=== PATIENT | female | born 1965 | race Caucasian/White ===

== ENCOUNTER 2021-08-06 23:52 | Inpatient (IN) | payer OTHER ==
[~2021-08-06] VITALS: Ht 165.1 cm; Wt 80.0 kg
--- OUTSIDE RECORDS SUMMARY | 2021-08-07 | XMS ---
PreManage Notification: RICH NATHAN Security Vibration Analyst Events No recent Security Events currently on file CRITERIA MET - [facility] - 2 Visits in 30 Days CARE PROVIDERS There are no care providers on record at this time. Cindy has no Care Guidelines for this patient. Allyson VISIT COUNT (12 MO.) [address] [place] [address] [address] [facility] TOTAL 2 NOTE: Visits indicate total known visits. ED/C VISIT TRACKING (12 MO.) 08/06/2021 23:53 [facility] [place] TYPE: Emergency COMPLAINT: - UPPER ABD PAIN 07/14/2021 11:30 [facility] TYPE: Emergency COMPLAINT: - Shoulder Pain DIAGNOSES: - Shoulder Pain - Hip Pain - Displaced fracture of lateral end of right clavicle, initial encounter for closed fracture INPATIENT VISIT TRACKING (12 MO.) No inpatient visits to display in this time frame [email or web address]
[2021-08-07] MEDS ORDERED: TYLENOL325 MG PO (00:18)
[2021-08-07] MEDS ORDERED: VITAMIN C1000 MG PO (04:40)
[2021-08-07] MEDS ORDERED: VITAMIN D3250 MC1 PO (04:41)
[2021-08-07] MEDS ORDERED: ZINC30 MG PO (04:42)
[2021-08-07] MEDS ORDERED: EVENING PRIMRO500 M1 PO (04:42)
--- NOTE | 2021-08-07 04:46 | NUR ---
PT ADMITTED TO ROOM 113 FROM ED. A/O, STOOD FROM STRETCHER AND TRANSFERED TO BED. NG TUBE IN PLACE. HAS HAD NAUSEA, VOMITING ON WAY TO MEDICAL FLOOR. ROOM AID, SATS IN 90'S. TELE WITH CPOX IN PLACE. UPDATED MED LIST, WELL FOLLOWING OTC: IODINE/TYROSINE DAILY; WOMEN PHASE VITANCIA; PRODHA 1,000 MG. PRIMARY RN IN ROOM COMPLETING ADMISSION
--- NOTE | 2021-08-07 05:02 | NUR ---
ADMISSION ASSESSMENT COMPLETE. PT DENIES PAIN. REPORTS NAUSEA IMPROVING AFTER PRN N/V ADMINISTRATION. IVF INFUSING ORDERED. NGT TO LIWS WITH THICK BROWN DRAINAGE. ABD SOFT AND NON DISTENDED. PT NPO. ORAL SWABS AND CHAPSTICK PROVIDED. TELE #[address] SR[address] HR 80'S. PT ORIENTED TO ROOM AND NURSE CALL LIGHT. PT VERBALIZES UNDERSTANDING. DENIES QUESTIONS OR CONCERNS. CALL LIGHT IN REACH.
--- NOTE | 2021-08-07 06:56 | NUR ---
NOTIFIED DR ALEXANDRA OF PT VOMITING. SAID TO ADVANCE NG TUBE. PRIMARY RN, AND THIS RN IN ROOM, ADVANCEMENT TOLERATED, WITH IMPROVEMENT OF OUTPUT.
--- NOTE | 2021-08-07 07:25 | NUR ---
REPORT RECEIVED FROM MACARIO FARIA. PT RESTING IN SEMIRECUMBANT POSITION. PT REPORTS "A SORE THROAT FROM THIS TUBE" BUT OTHERWISE DENIES PAIN AT THIS TIME. PT REPORTS NAUSEA HAS RESOLVED. NO ADDITIONAL REQUESTS OR COMPLAINTS AT [facility]. NG TUBE REMAINS TO LOW INTERMITTANT SUCTION WITH BROWN/GREEN FLUID NOTED IN CANISTER. TELEMETRY MONITORING SHOWSNORMAL SINUS RHYTHEM WITH HEART RATE OF 86 AND OXYGEN SATURATIONS OF 92%. CALL LIGHT WITHIN REACH. BED RAILS UP.
--- NOTE | 2021-08-07 07:37 | NUR ---
THIS RN TO ROOM WITH DR. ALEXANDRA FOR ROUNDS. NEW ORDERS ENTERED PER DR. ALEXANDRA FOR XRAY FOR NG TUBE PLACEMENT AND LOZANGES FOR PTS SORE THROAT. DR. ALEXANDRA ALSO STATES OK TO DC TELEMETRY AND PULSE OX MONITORING. NSR NOTED ON TELEMETRY WITH OXYGEN SATUARTION OF 98% ON ROOM AIR. PULSE OX AND TELEMETRY DC'D PER MD ORDER. PT REPORTS ABDOMINAL PAIN HAS RESOLVED BUT SORE THROAT REMAINS WITH 3/10 BURNING PAIN, AWAITING MEDICATION FROM PHARMACY. X-RAY TO BEDSIDE FOR IMAGING. X-RAY VIEWED BY DR. ALEXANDRA AT BEDSIDE WHO STATES NG TUBE IS IN THE CORRECT LOCATION. NG TUBE REMAINS TO LOW INTERMITTANT SUCTION WITH GREEN DRAINAGE NOTED. ASSESSMENT DONE, IV ASSESSED, WNL, BRISK BLOOD RETURN NOTED, IV FLUIDS CONTINUE. PT REPORTS SHE HAS HAD FALLS AT HOME RECENTLY "BECAUSE OF MY KITCHEN FLOOR." BRUISES NOTED TO LLE, CALF AREA. ABDOMEN SOFT TO TOUCH, PT DENEIS PAIN WITH PALPATION, MILD TENDERNESS NOTED AT TIMES. BOWEL TONES HYPOACTIVE. PT TALKING ON PHONE. CALL LIGHT WITHIN REACH. BED RAILS UP. NO ADDITIONAL REQUESTS OR COMPLAINTS.
--- NOTE | 2021-08-07 08:06 | NUR ---
THIS RN TO ROOM TO ADMINISTER MORNING MEDICATIONS. PT CONTINUES TALKING ON PHONE. PT REPORTS NAUSEA HAS RETURNED, SEE MAR FOR MEDICATION GIVEN. PT DENIES ADDTIIONAL REQUESTS OR COMPLAINTS. CALL LIGHT WITHIN REACH. BED RAILS UP.
--- NOTE | 2021-08-07 10:22 | NUR ---
THIS RN TO ROOM TO CHECK ON PT. FARM CONSULTANT REPORTS PT HAS EPISODE OF NAUSEA WITH 100ML EMESIS. RAVI STATES SHE GOT PT UP OUT OF BED TO VOID AFTER WHICH THE NG TUBE SUCTIONED OUT A LARGE AMOUNT. 350ML RECORDED BY MACARIO HOWELL. ADDITIONAL 100ML GREEN FLUID NOTED IN CANISTER AT THIS TIME. PT RESTING WITH EYES CLOSED. RESPIRATIONS EVEN AND UNLABORED. LOW INTERMITTANT SUCTION CONTINUES TO NG TUBE. PT ALLOWED TO REST. CALL LIGHT WITHIN REACH. BED RAILS UP.
--- NOTE | 2021-08-07 10:25 | NUR ---
PATIENT UP TO COMMODE, EARLIER THIS MORNING, TO VOID, TOLERATED ACTIVITY WELL, NGT DRAINED WELL WITH ACTIVITY AND PATIENT REPORTED DECREASE IN NAUSEA.
--- NOTE | 2021-08-07 10:42 | NUR ---
MED REC COMPLETED BY PATIENT INTERVIEW
--- NOTE | 2021-08-07 11:03 | NUR ---
THIS RN TO ROOM TO CHECK ON PT. PT REPORTS NAUSEA IS "LINGERING, STARTING TO COME BACK." PT ENCOURAGED TO REPOSITION. STAND BY ASSIST UP TO CHAIR. ADDITIONAL FLUID NOTED TO STREAM THROUGH NG TUBE. TOTAL OF 450ML GREEN FLUID NOTED IN CANISTER AT THIS TIME. PT REPORTS SHE FEELS "BETTER" GETTING UP TO CHAIR. PT TALKING ON PHONE. NO ADDITIONAL REQUESTS OR COMPLAINTS AT THIS TIME. CALL LIGHT WITHIN REACH. BED RAILS UP.
--- NOTE | 2021-08-07 12:31 | NUR ---
THIS RN TO ROOM TO CHECK ON PT. PT UP TO CHAIR. PT REPORTS SHE WOULD LIKE TO AMBULATE. 575ML OF GREEN FLUID NOTED IN NG TUBE CANISER. NG TUBE CLAMBED FOR AMBULATION. PT UP TO AMBULATE X 4 LAPS IN [place]. STEADY ON FEET, NO ASSISTANCE REQUIRED. PT BACK TO ROOM. PT REPORTS 6/10 THROAT PAIN, CEPACOL LOSANGE PROVIDED. PT WORKING ON PHONE. ICE WATER PROVIDED. NO ADDITIONAL REQUESTS OR COMPLAINTS. CALL LUIZ GALVAN.
[2021-08-07] MEDS ORDERED: MONTELUKAST SOD10 MG PO (12:53)
--- NOTE | 2021-08-07 12:53 | NUR ---
MED REC COMPLETED BY PHARMACY VIA PATIENT INTERVIEW.
--- NOTE | 2021-08-07 13:00 | NUR ---
Spoke with pt. She is not feeling well and has NG in place and this is causing a sore throat. States she lives with her spouse in [place] and denies needs. She does not have financial concerns and supports the the [employer] in [place]. Will return home with spouse when cleared medically.
--- NOTE | 2021-08-07 13:07 | NUR ---
PATIENT NG TUBE FLUSHED WITH 40CC TAP WATER, FLUSH IMMEDIATELY RETURNED TO SUCTION.
--- NOTE | 2021-08-07 13:15 | EKG ---
[facility] [address] [facility] [place] [address] Signed Normal sinus rhythm Low voltage QRS Borderline ECG No previous ECGs available Confirmed by CHRIS FALL MD ([id number]) on 08/07/2021 1:15:05 PM Electronically Signed By: CHRIS FALL MD 08/07/21 1315 PATIENT NAME: RICH NATHAN MARIBEL Electrocardiogram DATE OF : 61 PHYSICIAN: CHRIS FALL MD REPORT #: [id number] REPORT IS CONFIDENTIAL AND NOT TO BE RELEASED WITHOUT AUTHORIZATION
--- NOTE | 2021-08-07 13:39 | NUR ---
AFTERNOON ASSESSMENT AND MEDICATION DUE. THIS RN TO ROOM. PT REMAINS UP TO CHAIR. PT REPORTS NAUSEA AND 5/10 UPPER CENTRAL ABDOMINAL PAIN WELL 6/10 PAIN IN THROAT. PT BEGINS VOMITING, 100ML GREEN EMESIS NOTED. MEDICATIONS GIVEN (SEE MAR). NG TUBE REMAINS TO LOW INTERMITTANT SUCTION, GREEN FLUID NOTED IN TUBING WELL A TOTAL OF 600ML GREEN FLUID IN CANISTER. PT UP TO RESTROOM. PT VOIDS 300ML CLEAR YELLOW URINE WITHOUT ISSUE, PT PERFORMES SLEF DUTSY CARE. STAND BY ASSIST BACK TO BED. PT DESCRIBES PAIN "PRESSURE AND ACHY AND CONTINIOUS JUST LIKE SOMETHING NEEDS TO HAPPEN." VITAL SIGNS REMAINS STABLE. ASSESSMENT DONE, LUNG SOUNDS CLEAR, HEART TONES REGULAR. ABDOMEN REMAINS SOFT TO TOUCH WITH MILD DISTENTION. VERY RARE HYPOACTIVE BOWEL TONES HEARD. PT NO TOLERATING CLEAR LIQUIDS AT THIS TIME. MOUTH WAS PROVIDED, FACE CLEANED WITH CLOTH. PT RESTING IN BED WITH EYES CLOSED. RESPRAITIONS EVEN AND UNLABORED. VASILIY, CASE MANAGEMENT, TO BEDSIDE AND VISITING WITH PT. PT DENIES ADDITIONAL REQUESTS OR COMPLAINTS. CALL LIGHT WITHIN REACH.
--- NOTE | 2021-08-07 14:22 | NUR ---
AFTERNOON ASSESSMENT DUE. THIS RN TO ROOM. PT RESTING ON LEFT SIDE, REPORTS SHE IS VERY TIRED AFTER BEING UP ALL NIGHT. PT DENIES PAIN, STATES HEADACHE HAS RESOLVED. PT REPORTS "MILD" NAUSEA," SEE MAR FOR MEDICATION GIVEN. PT REPORTS "MY STOMACH JUST FEELS OFF." REPORTING THAT SHE JUST ISN'T ENJOYING HER FOOD. IV ASSESSED, WNL. NO S/S/ OF PHELBITIS NOTED, FLUSHED AND SALINE LOCKED, ALCOHOL CAP APPLIED. LUNG SOUNDS CLEAR. HEART TONES REGULAR, MURMUR REMAINS. PT REPORTS HAND SWELLING IS "BETTER" IN LEFT HAND REPORTING NOW "IT'S JUST THE RIGHT ONE." CLEAR ORANGE/YELLOW URINE NOTED. PT DENIES DYSURIA. NO ADDITIONAL REQUESTS OR COMPLAINTS. NAP TIME SIGN POSTED ON DOOR. CALL LIGHT WITHIN REACH. BED RAILS UP.
--- NOTE | 2021-08-07 15:15 | NUR ---
THIS RN TO ROOM TO CHECK ON PT. PT SITTING UP IN BED, TEXTING ON PHONE. PT REPORTS ABDOMINAL PAIN AND NAUSEA HAVE RESOLVED. PT REPORTS SORE THROAT CONTINUES AT 2/10. NG TUBE REMAINS TO LOW INTERMITTANT SUCTION WITH GREEN FLUID. PT DENIES ADDITIONAL REQUESTS OR COMPLAINTS AT THIS TIME. CALL LIGHT WITHIN REACH. BED RAILS UP.
--- NOTE | 2021-08-07 16:47 | NUR ---
THIS RN TO ROOM TO CHECK ON PT. PT SITTING UP IN BED TALKING ON PHONE. PT SHAKES HER HEAD NO WHEN ASKED IF SHE IS IN NEED OF ANYTHING. PT FINSHING PHONE CONVERSATION. CALL LIGHT WITHIN REACH. BED RAILS UP.
--- NOTE | 2021-08-07 17:07 | NUR ---
PT HERE FOR SMALL BOWEL OBSTRUCTION. PT UP WITH STAND BY ASSIST IN ROOM, TO CHAIR, AND TO AMBULATE IN [place]. PT ADVANCED TO CLEAR LIQUID DIET FOR COMFORT, TOLERATING POORLY WITH EMESIS X2 THIS SHIFT. PRN NAUSEA MEDICATIONS GIVEN. NG TUBE IN PLACE TO LOW INTERMITTANT SUCTION. >600ML GREEN FLUID NOTED OUT THIS SHIFT. PRN PAIN MEDICATION GIVEN FOR ABDOMINAL PAIN AND SORE THROAT. CEPACOLE LOZANGES ORDERED/GIVEN. BOWEL TONES RARE, ABDOMEN SOFT TO TOUCH. IV FLUIDS CONTINUE. PT VOIDING QUANTITY SUFFICIENT. PT USES CALL LIGHT AND MAKES NEEDS KNOWN.
--- NOTE | 2021-08-07 17:42 | NUR ---
THIS RN TO ROOM TO CHECK ON PT. VITAL SIGNS STABLE. PT UP TO SHOWER, IV COVERED. PT INDEPENDANT IN SHOWER. PT DENIES PAIN AND NAUSEA, CALL LIGHT WITHIN REACH. PT DENIES ADDITIONAL REQUESTS OR COMPOLAINTS. DEMONSTRATES USE OF CALL LIGHT.
--- NOTE | 2021-08-07 17:54 | NUR ---
THIS RN TO ROOM TO CHECK ON PT. PT UP TO AMBULATE X6 LAPS IN [place]. PT REPORTS SHE HAS "NO PAIN AT ALL." REPORTING THAT BOTH SORE THROAT AND ABDOMINAL PAIN HAVE RESOLVED. PT ASKES "SHOULD I BE IN PAIN RIGHT NOW?" EDUCATION DONE WITH PT REGARDING PAIN MEIDCATION AND TORADOL THAT WAS GIVEN. PT APPEARS MORE ENERGTETIC, CARRING ON CONVERSATION. PT DENIES NAUSEA. 25ML ADDITIONAL GREEN FLUID NOTED IN NG TUBE. NG TUBE REATTATCHED TO LOW INTERMITTANT SUCTION AFTER PTS AMBULATION. PT REPORTS SHE HAS "FARTED" X3 THIS AFTERNOON. PT DENIES ADDITIONAL REQUESTS OR COMPLAINTS. CALL LIGHT WITHIN REACH. BED RAILSU P.
--- NOTE | 2021-08-07 18:44 | NUR ---
DR. ALEXANDRA UPDATED ON PT STATUS. AWAITING NEW ORDERS.
--- NOTE | 2021-08-07 19:20 | NUR ---
SHIFT REPORT RECEIVED FROM DA GUAN AT BEDSIDE. pt AWAKE AND RESTING IN BED. IV FLUIDS INFUSING DIRECTED, IV SITE WNL. NG TUBE TO LIWS, BLUE AIR PORTION OF NG TUBE FLUSHED WITH AIR BY DA GUAN, NG OUTPUT GREEN IN COLOR. FAMILY IN ROOM, NO NEEDS VERBALIZED. CALL LIGHT IN REACH.
--- NOTE | 2021-08-07 21:10 | NUR ---
IN TO GET VITALS, DINNER TRAY TAKEN OUT, PT HAS A HEADACHE AND RN AWARE, TO BE IN SOON, PT DOES NOT NEED TO VOID RIGHT NOW BUT WILL TRY LATER, NO FURTHER NEEDS AT THIS TIME
--- NOTE | 2021-08-07 21:20 | NUR ---
pt RESTING QUIETLY IN BED, EYES CLOSED. RR EVEN AND UNLABORED. SOD STRIPPER PEDRITO IN ROOM AND RECENTLY COLLECTED EVENING VS. CALL LIGHT IN REACH.
--- NOTE | 2021-08-07 22:00 | NUR ---
ASSESSMENT COMPLETE, SCHEDULED MEDICATIONS ALSONG WITH PRN PAIN MEDICATION GIVEN (SEE EMAR). VSS, pt REPORTS MINIMAL PAIN 1/10 IN ABD, 4-5/10 R/T HEADACHE AND SOME DISCOMFORT R/T CURRENT NG TUBE. NG TUBE REMAINS TO LIWS, WORKING WNL. pt DENIES NAUSEA. DENEIS NEED TO VOID, WILL MONITOR. IV SITE WNL, IV FLUIDS INFUSING DIRECTED. NO ADDITIOANL NEEDS, CALL LIGHT IN REACH.
--- NOTE | 2021-08-07 23:40 | NUR ---
IN TO CHECK ON PT, PT DOES NOT WANT TO GET UP TO VOID/FEEL THE NEED, TOLD PT TO TRY AT LEAST, PT WANTS ONE MORE HOUR, WILL ROUND BACK ON PT, RN INFORMED AT THIS TIME
--- NOTE | 2021-08-08 00:24 | NUR ---
ROUNDED ON pt, pt RESTING IN BED WITH EYES CLOSED. RR EVEN AND UNLABORED. NG TUBE REMAINS AT LIWS, NASLA SECUREMENT DEVICE IN PLACE. IV FLUIDS INFUSING DIRECTED, IV SITE WNL. CALL LIGHT IN REACH.
--- NOTE | 2021-08-08 01:21 | NUR ---
CALL LIGHT ANSWERED, pt UP SBA TO VOID. 400MLS OUTPUT NOTED. pt BACK IN BED, NG TUBE TO LIWS, LINE CLEARED AND EMPTIED INTO CANISTER. NG TUBE WNL. pt DENIES NAUSEA AND REPORTS PASSING GAS. IV SITE WNL, FLUIDS INFUSING DIRECTED. WARM BLANKET, PILLOW, AND THROAT LOZENGE ALL PROVIDED. NO FURTHER NEEDS, CALL LIGHT IN REACH.
--- NOTE | 2021-08-08 03:58 | NUR ---
pt RESTING IN BED WITH EYES CLOSED, RR EVEN AND UNLABORED. NG TUBE REMAINS AT LIWS. IV FLUIDS INFUSING DIRECTED, IV SITE WNL. CALL LIGHT IN REACH.
--- NOTE | 2021-08-08 05:38 | NUR ---
ASSESSMENT COMPLETE, NO ACUTE CHANGES. pt DENIES NAUSEA. BOWEL TONES HYPOACTIVE TO ACTIVE, pt REPORTS PASSING GAS. NG TUBE REMAINS TO LIWS, OUTPUT GREEN IN COLOR. IV ABX AND IV FLUIDS INFUSING DIRECTED, IV SITE WNL. NO FURTHER NEEDS, CALL LIGHT IN REACH.
--- NOTE | 2021-08-08 07:22 | NUR ---
REPORT RECEIVED FROM MACARIO MCKEON. PT RESTING IN BED TALKING ON PHONE. PT DENIES NASUEA. PT REPORTS / HEADACHE, DECLINES PAIN MEDICAITON AT THIS TIME STATING "LETS JUST WAIT AND SEE." PT REPORTS SHE DOES NOT NORMALLY DRINK COFFEE OR PRODUCTS WITH CAFFEEN. COOL WASH CLOTH PROVIDED. IMAGIN CALLED TO STATE THEY ARE COMING TO ESCROW CLOSER PT FOR IMAGING. NG TUBE CLAMPED. IV SALINE LOCKED. PT TRANSFERSE SELF TO WHEELCHAIR, NO ASSISTANCE NEEDED. PT TO IMAGING. NO ADDITIONAL REQUESTS OR COMPLAINTS.
--- NOTE | 2021-08-08 07:45 | NUR ---
PT BACK TO FLOOR FROM IMAGING. NG TUBE PLACED BACK TO LIWS. CANISTER CHANGED. 100 MLS GREEN STOMACH CONTENT OUT DOCUMENTED. PT SITTING IN CHAIR. CALL LIGHT IN REACH.
--- NOTE | 2021-08-08 08:31 | NUR ---
MORNING ASSESSMENT AND MEDICATION DUE. PT RETURNED FROM IMAGING, INTERMITTANT SUCTION REAPPLIED TO NG TUBE BY MACARIO PAK. PT UP TO CHAIR. TALKING ON VIDEO CHAT THROUGH COMPUTER. PT REPORTS 4/10 SORE THROAT "ONLY WHEN I SWALLOW." PT DECLINES CEPACOL LOZANGE AT THIS TIME. PT REPORTS 2/10 HEADACHE. PT CONTINUES TO DECLINE PAIN MEDICATION STATING "LETS JUST WAIT AND SEE WHAT HAPPENS." PT REPORTS SHE WOULD LIKE TO TAKE A SHOWER SHE THINKS THIS MIGHT HELP. TRAFFIC CONTROL SUPERVISOR AND STUDENT NURSE UPDATED AND TO ROOM TO ASSIT PT WITH SHOWER. IV ASSESSED, WNL, BLOOD RETURN NOTED. IV REMAINS SALINE LOCKED FOR SHOWER. PT REMAINS ALERT AND ORIENTED. LUNG SOUNDS CLEAR. HEART TONES REGULAR. ABDOMEN SOFT, HYPOACTIVE BOWEL TONES HEARD, VERY MINIMAL. ABOMDEN SOFT TO TOUCH, PT DENIES PAIN. NG TUBE REMAINS TO LOW INTERMITTAN SUCTION. NO NEW DRAINAGE NOTED SINCE PT RETURNED FROM IMAGING. NG TUBE CLAMPED FOR SHOWER. PT DENIES NAUSEA. PT TOLERATING SIPS OF CLEARS. PT WORKING WITH TRAFFIC CONTROL SUPERVISOR AND STUDENT RN. NO ADDITIONAL REQUESTS OR COMPLAINTS. CALL LIGHT WITHIN REACH.
--- NOTE | 2021-08-08 09:45 | NUR ---
THIS RN TO ROOM TO CHECK ON PT. PT UP TO AMBULATE IN [place] X3 LAPS. 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 SHOWER SET UP BY THIS RN. IV COVERED. PT INDEPENDANT IN SHOWER. NO ADDITIONAL REQUESTS OR COMPLAINTS. PT DEMONSTRATES USE OF CALL LIGHT. CALL LIGHT WITHIN REACH.
--- NOTE | 2021-08-08 10:09 | NUR ---
PT FINISHED WITH SHOWER. IV FLUIDS RESTARTED. NG TUBE RETURNED TO LOW INTERMITTANT SUCTION. PT DENIES NAUSEA AND STATES "I'M JUST BACK TO MY NORMAL PAINS EXCEPT FOR THIS TUBE." PT DECLINES CEPACOL LOZANGE. SELF ADHESIVE BANDAGE TO NG TUBE REMAINS INTACT. PT REPORTS "A BLOODY NOSE." SCANT AMOUNT OF BLOOD NOTED ON TISSUES, LIKELY RELATE TO NG TUBE. NO ADDITION REQUESTS OR COMPLAINTS. CALL LIGHT WITHIN REACH.
--- NOTE | 2021-08-08 11:15 | NUR ---
Spoke briefly with pt. She is walking in the rausch, smiling, talking on her cell phone.
--- NOTE | 2021-08-08 11:16 | NUR ---
THIS RN TO ROOM TO CHECK ON PT. PT RESTING IN BED, TALKING ON PHONE. PT REPORTS 2/10 HEADACHE AND 4/10 SORE THROAT "WHEN I SWALLOW." ICE WATER REFILLED. PT OTHERWISE DENIES PAIN STATING "I'M JUST FEELING A LOT BETTER." PT DENIES NEED FOR PAIN MEDICATION. REPORTS SHE SPOKE WITH DR. ROBLERO WHO PLACED HER LAP BAND AND HE STATES "IT HAS NOTHING TO DO WITH THE LAP BAND, IT SHOULD JUST BE TREATED A BLOCKAGE." PT STATES "IT FEELS SO GOOD TO HAVE MY NOMRAL HAIR BACK AFTER THAT SHOWER." PT. DENIES ADDITIONAL REQUESTS OR COMPLAINTS. CALL LIGHT [employer] REACH. BED RAILS UP.
--- NOTE | 2021-08-08 12:10 | NUR ---
THIS RN TO ROOM TO CHECK ON PT. PT TALKING ON PHONE WITH HER TEAM FROM WORK. PT DENIES ANY NEW PAIN OR NAUSEA AND CONTINUES TO DECLINE PAIN MEDICATION. NO ADDITIONAL REQUESTS OR COMPLAINTS. NG TUBE REMAINS TO LOW INTERMITTANT SUCTION, MINIMAL NEW DRAINAGE. CALL LIGHT WITHIN REACH. BED RAILS UP.
--- NOTE | 2021-08-08 12:59 | NUR ---
THIS RN TO ROOM TO CHECK ON PT. PT TALKING WITH COWORKERS ON PHONE. PT DENIES PAIN AND NASUEA "EXCEPT FOR THIS TUBE, BUT IT'S NOT THAT BAD." PT CONTINUES TO DECLINE CEPACOL LOZANGE AT THIS TIME. PT REPORTS "NOSE BLEEDS " HAVE IMPROVED. SCANT RED DRAINAGE NOTED ONTISSUE AT BEDSIDE. PT DENIES NAUSEA. NO ADDITIONAL REQUESTS OR COMPLAINTS. CALL LIGHT WITHIN REACH. BED RAILS UP.
--- NOTE | 2021-08-08 13:53 | NUR ---
AFTERNOON ASSESSMENT AND MEDICATION DUE. PT SITTING ON EDGE OF BED TALKING WITH . IMAGING CALLED REGARDING SMALL BOWEL FOLLOW THROUGH STUDY. IMAGING TECHNITIAN STATES SHE WILL TALK WITH RADIOLOGIST TO SEE IF STUDY IS NECESSARY AND UPDATE THE TEAM. AWAITING CALL BACK. PT AND UPDATED ON PLAN OF CARE AND STATE THEIR QUESTIONS HAVE BEEN ANSWERED. PT ALERT AND ORIENTED. PT DENIES PAIN BUT FOR 6/10 PAIN IN HER THROAT WHEN SWALLOWING AND 3/10 WHEN RESTING. PT AGREES TO CEPACOL LOZANGE, PROVIDED (SEE MAR). PT STEADY ON FEET. UP TO AMBULATE IN [place] WITH NG TUBE CLAMPED. PT AMBULATES X4 LAPS IN [place], STEADY ON FEET, NO ASSISTANCE NEEDED. ABDOMEN REMAINS SOFT. HYPOACTIVE BOWEL TONES HEARD. PT DENIES PASSING ANY GAS THIS SHIFT. PT DENIES ANY TENDERNESS TO ABDOMEN. HEART TONES REGULAR, LUNG SOUNDS CLEAR. PT STATES EVEN HER RIGHT SHOULDER IS FEELING BETTER "i CAN MOVE IT MORE." CLEAR BROWN FLUID NOTED IN NG TUBE ~250ML (MINUS ANY PO INTAKE). PT DENIES ADDITIONAL REQUESTS OR COMPLAINTS. CT CALLED AND STATES THEY HAVE CLARIFIED/CONFIRMED ORDERS WITH RADIOLOGIST AND DR. ALEXANDRA. THEY ARE COMING TO CRITICAL CARE NURSE SPECIALIST PT. IV SALINE LOCKED. PT TRANSPORTED TO IMAGING BY WHEELCHAIR. NO ADDITIONAL NEEDS AT THIS TIME.
--- NOTE | 2021-08-08 14:15 | NUR ---
Received vitals from patient, patient is saline locked and radiology arrived.
--- NOTE | 2021-08-08 15:53 | NUR ---
DR. ALEXANDRA UPDATED ON PT STATUS. PT REMAINS IN IMAGAING FOR SMALL BOWEL FOLLOW THROUGH, AWAITING PTS RETURN TO MED/SURG. NO NEW ORDERS AT THIS TIME.
--- NOTE | 2021-08-08 15:57 | NUR ---
PT RETURNED FROM IMAGING. PT REPORTS "IT WENT THROUGH!" PT CONTINUES TO DENY PAIN AND NAUSEA. PT TEXTING ON PHONE. NO ADDITIONAL REQUESTS OR COMPLAINTS. DR. ALEXANDRA UPDATED. AWAITING ORDERS.
--- NOTE | 2021-08-08 16:05 | NUR ---
TO RC FOR ROUNDS. VERBAL ORDERS GIVEN TO REMOVE NG TUBE AND ADVANCE PT TO FULL LIQUID DIET. EDUCATION DONE WITH PT REGARDING LIMITING LARGE DOSES OF HIGH FIBER FOODS. NG TUBE REMOVED PER PROTOCOL. PT TOELRATED WELL. PT CONTINUES TO DENY PAIN AND NAUSEA. STAND BY ASSIST UP TO RESTROOM. PT HAS LARGE SIZED SOFT BROWN BOWEL MOVEMENT. PT PERFROMS SELF DUSTY CARE. PT BACK TO BED. TALKING ON PHONE. DR. ALEXANDRA CONSULTED AND STATES TO SALINE LOCK PT AT THIS TIME LONG SHE IS TOLERATING PO FLUIDS. PT REMAINS SALINE LOCKED AT THIS TIME. FULL LIQUID DIET DINNER ORDER PLACED, DR. ALEXANDRA STATES TO ADVANCE DIET TOELRATED, ORDER PLACED. PT TALKING ON PHONE. NO ADDITONAL REQUESTS OR COMPLAINTS. CALL LIGHT WITHIN REACH.
--- NOTE | 2021-08-08 16:31 | NUR ---
PT HERE FOR SMALL BOWEL OBSTRUCTION. PT UP INDEPENDANTLY IN ROOM AND TO AMBULATE IN [place] MULTIPLE TIMES THIS SHIFT. NG TUBE DC'D, PT TOLERATED WELL. PT ADVANCED TO FULL LIQUID DIET FOR DINNER. IV SALINE LOCKED PT IS TOLERATING PO FLUIDS. DIET TO BE ADVANCED TOLERATED. BOWEL MOVEMENT NOTED THIS SHIFT. PT REPORTS ONLY SORE THROAT THIS SHIFT, RESOLVED WITH NG TUBE COMING OUT. NO ABDOMINAL PAIN OR NAUSEA SO FAR THIS SHIFT. PT VOIDING QUANITTY SUFFICIENT. PT USES CALL LIGHT AND MAKES NEEDS KNOWN.
--- NOTE | 2021-08-08 17:15 | NUR ---
THIS RN TO ROOM TO CHECK ON PT. PT CHEERFUL AND TELLING STORIES ABOUT FAMILY. pT DENIES PAIN AND NAUSEA, REPORTS SORE THROAT HAS RESOLVED. PT TOLERATING PO INTAKE WELL. EATING FULL LIQUIDS FOR DINNER AND DRINKING WATER. PT DENIES ADDITIONAL REQUESTS OR COMPLAINTS. CALL LIGHT WITHIN REACH.
--- NOTE | 2021-08-08 17:50 | NUR ---
Received vitals and I and Os from patient, in room.
--- NOTE | 2021-08-08 18:10 | NUR ---
THIS RN TO ROOM TO CHECK ON PT. PT WAS ABLE TO EAT 60% OF HER DINNER ORDER INCLUDING YOGURT, ICE CREAM, AND PUDDING. PT DENIES PAIN AND NAUSEA. DIET ADVANCED, BREAKFAST ORDER PLACED. ICE WATER AND JUICE REFILLED. PTS AT BEDSIDE. NO ADDITIONAL REQUESTS OR COMPLAINTS. CALL LIGHT WITHIN REACH.
--- NOTE | 2021-08-08 19:30 | NUR ---
SHIFT REPORT RECEIVED FROM FREIDA SORTO. PT RESTING IN BED. NO NEEDS AT THIS TIME. CALL LIGHT IN REACH.
--- NOTE | 2021-08-08 21:40 | NUR ---
IN TO GET VITALS, PT HAS BEEN UP TO THE TOILET RENCENTLY FOR BMs, FRESH APPLE JUICE PROVIDED FOR PT AND PUDDING, NO FURTHER NEEDS AT THIS TIME
--- NOTE | 2021-08-08 22:22 | NUR ---
ASSESSMENT COMPLETED. SCHEDULED MEDS PROVIDED. GCS 15, A&O X4. LUNGS CLEAR. HEART TONES REGULAR. ABD SOFT, NONTENDER, BOWEL TONES HYPERACTIVE. CMS INTACT. IV WNL, CDI, FLUSHED WELL. PT DENIES NAUSEA AND PAIN AT THIS TIME. PT REPORTS MANY LOOSE STOOLS. TOLERATING DIET WELL. NO OTHER NEEDS. CALL LIGHT IN REACH.
--- NOTE | 2021-08-09 | NUR ---
PT RESTING IN BED. CALL LIGHT IN REACH.
--- NOTE | 2021-08-09 02:00 | NUR ---
PT RESTING IN BED. CALL LIGHT IN REACH.
--- NOTE | 2021-08-09 03:36 | NUR ---
PT AWAKE IN ROOM. ASSESSMENT COMPLETED. PT DENIES PAIN OR NAUSEA. IV WNL. NO OTHER NEEDS. CALL LIGHT IN REACH.
--- NOTE | 2021-08-09 05:20 | NUR ---
IN ROOM TO COLLECT VS. VSS AND I&O'S BOTH DONE. FRESH WATER PROVIDED. pt REPORTS PAIN R/T HEADACHE. PRIMARY RN DENIA AWARE. CALL LIGHT IN REACH.
--- NOTE | 2021-08-09 05:46 | NUR ---
SCHEDULED MED PROVIDED. PT REPORTS HEADACHE AND RIGHT SHOULDER PAIN 3/10, PRN PAIN MED PROVIDED. NO OTHER NEEDS. CALL LIGHT IN REACH.
--- NOTE | 2021-08-09 07:30 | NUR ---
Shift report received from MACARIO Bailon, pt resting in bed safely w/ call light in reach. Pt denies any needs at this time.
--- NOTE | 2021-08-09 09:00 | NUR ---
Pt sitting up in bed safely w/ call light in reach. Morning assesment completed and scheduled meds given per provider order. Pt denies any further needs at this time.
[2021-08-09] MEDS ORDERED: BACTRIM DS TAB1 EACH PO (10:07)
--- NOTE | 2021-08-09 11:30 | NUR ---
Pt dressed and sitting up on side of bed. IV removed and VSS on RA, no redness or swelling noted at the insertion site, guaze and coban applied, pt educated on post IV site care. Discharge instruions given on written form and verbally. Pt verbalizes understanding, all questions/concerns answered. Pt taken via w/c to front lobby, here to transport pt home.
--- NOTE | 2021-08-09 14:35 | HP ---
[facility] [address] [place], [place] [address] Signed ADMISSION DATE: 08/06/2021 REASON FOR ADMISSION: Small bowel obstruction. HISTORY OF PRESENT ILLNESS: This 56-year-old obese white woman underwent laparoscopic band surgery by Dr. An in the [facility] approximately 10 years ago. She presented to the emergency room late last night with protracted nausea and vomiting and was found on CT scan to have a small-bowel obstruction. A nasogastric tube was placed which did relieve some symptoms, but she had additional vomiting for which the nasogastric tube was placed a bit more distally, which has been helpful. The patient has also had history of kidney stones and cholecystectomy in the past. Since her admission, she does have a bit of a sore throat related to the nasogastric tube, but does feel somewhat better regarding the abdomen. She did have abdominal pain at presentation, but with nasogastric decompression is much improved. REVIEW OF SYSTEMS: She denies any shortness of breath or chest pain. She has had no hematemesis or blood per rectum. She has never had bowel obstruction in the past. SOCIAL HISTORY: She is . She has one grown son, 38 years of age, who lives in [place]. She lives in [place], [place]. She has suffered a right clavicle fracture related to horse riding in the past. Her primary provider is AMADO Draper. PHYSICAL EXAMINATION: GENERAL: A pleasant white woman is sitting in a semi upright. She does not look systemically toxic. VITAL SIGNS: Temperature is 97.4, pulse is 80, blood pressure 125/78. NECK: Shows trachea to be midline. CHEST: Shows normal respiratory excursion. Pulses regular. ABDOMEN: Somewhat obese, but generally soft and not tender. Laparoscopic incisions are noted. EXTREMITIES: Show no clubbing, cyanosis, or edema. LAB STUDIES: Electronically Signed By: DONNIE ALEXANDRA MD 08/09/21 5433 PATIENT NAME: RICH NATHAN HISTORY AND PHYSICAL DATE OF : 61 REPORT #: [id number] PHYSICIAN: DONNIE ALEXANDRA MD PCP: MICHELLE ISAAC REPORT IS CONFIDENTIAL AND NOT TO BE RELEASED WITHOUT AUTHORIZATION [facility] [address] [place], [place] [address] Signed At admission showed a white count of 12.2, hematocrit 41.9, platelets 288,000. Chem profile showed normal electrolytes. Troponin was 5.2 (highly sensitive type), globulin was 4.0, which was elevated, lipase 76, alkaline phosphatase 140. COVID test is negative. Urinalysis showed large leukocyte esterase and urine white cells greater than 50, bacteria 1+. A CT scan was reviewed in detail as was the report. There is definitely decompressed distal small bowel and proximally dilated small bowel related to obstruction, which may or may not be associated with the catheter related to the laparoscopic band device. The lap band itself appears to be well positioned in relation to the stomach. There is a nonobstructing 1.2 cm calculus of the lower pole calyx in the right kidney and a 1 cm rounded calculus in the midpole on the left side. A small hiatal hernia is noted. Stomach distended with a fluid level and the "double stomach appearance," typical of a banded stomach. Dilated loops of small bowel up to 3.5 cm were noted at the transition point in the left upper pelvis, somewhat in relation to the catheter on report and also on my examination. A high-grade obstruction is considered likely. There is no pneumatosis or sign of free air. ASSESSMENT: The patient has small bowel obstruction possibly related to adhesions related to the lap-band catheter itself. It does not appear likely that the band entraps bowel particularly, but there may be scar tissue associated with it causing the problem. She has been decompressed with nasogastric tube and at this point it is being monitored. She has no tenderness or accelerating symptoms. There is a reasonable chance that surgical intervention will be needed; however, this may resolve spontaneously. I will re-examine her in a few hours and assess her progress. MD RAKESH Veliz/ANDREW /[id number] cc: AMADO Draper Dr., Dr. Electronically Signed By: DONNIE ALEXANDRA MD 08/09/21 1435 PATIENT NAME: RICH NATHAN HISTORY AND PHYSICAL DATE OF : 61 REPORT #: [id number] PHYSICIAN: DONNIE ALEXANDRA MD PCP: MICHELLE ISAAC REPORT IS CONFIDENTIAL AND NOT TO BE RELEASED WITHOUT AUTHORIZATION [address] [address] Signed Copies: MICHELLE ISAAC ~ Electronically Signed By: DONNIE ALEXANDRA MD 08/09/21 1435 PATIENT NAME: RIHC NATHAN MARIBEL HISTORY AND PHYSICAL DATE OF : 61 REPORT #: [id number] PHYSICIAN: DONNIE ALEXANDRA MD PCP: MICHELLE ISAAC REPORT IS CONFIDENTIAL AND NOT TO BE RELEASED WITHOUT AUTHORIZATION
--- NOTE | 2021-08-11 12:52 | DS ---
[facility] [address] [place], [place] [address] Signed ADMISSION DATE: 08/07/2021 DISCHARGE DATE: 08/09/2021 REASON FOR ADMISSION: Small bowel obstruction. HISTORY: This 56-year-old white woman presented to the emergency room and evaluated by Dr. Woods with abdominal pain and abdominal findings suggestive of bowel obstruction. A CT scan did show small bowel obstruction with area of inflammation and so forth in the left lower abdominal area. Notably, the patient underwent a laparoscopic band procedure by Dr. An in the [facility] approximately 10 years ago. She has never had problem with the band itself and never had any bowel obstruction problems in the past. She is admitted for further evaluation and care. PERTINENT PHYSICAL EXAMINATION: GENERAL: Showed a pleasant white woman, who did not look systemically toxic. VITAL SIGNS: Temperature is 97.4, pulse 80, and blood pressure 125/78. CHEST: Shows normal respiratory excursion. Pulse is regular. ABDOMEN: Somewhat obese, but generally soft and nontender. Laparoscopic incisions are well noted. HOSPITAL COURSE: A nasogastric tube was placed, but she had protracted of vomiting around the tube. It was adjusted by advancing it further, which allowed it to enter into the main bulk of the stomach I believe and allowed for much improvement. Her initial white count at admission was 12.2, subsequent white count has improved. She still had a fair amount of nasogastric tube output. A followup abdominal KUB showed some improvement of the bowel obstruction, but uncertain as to the extent that the bowel obstruction was resolved actually a small bowel follow-through was performed on August 08, 2021, this did show resolution of the bowel obstruction. She was advanced in her diet after removal of the nasogastric tube, ultimately tolerating a regular diet. By the day of discharge, she is ambulating well, tolerating a regular diet without problem and has clinical resolution of the obstruction. It is noted at that admit admission she was found to have an abnormal urinalysis highly consistent with urinary tract infection including slightly cloudy appearance of the urine, large leukocyte esterase, white blood cells greater than 50 per high-power field, and bacteria 1+. At this point, her cultures had not yet returned. She was treated Electronically Signed By: DONNIE ALEXANDRA MD 08/11/21 1252 PATIENT NAME: RICH NATHAN DISCHARGE SUMMARY DATE OF : 61 REPORT #: [id number] PHYSICIAN: DONNIE ALEXANDRA MD PCP: MICHELLE ISAAC REPORT IS CONFIDENTIAL AND NOT TO BE RELEASED WITHOUT AUTHORIZATION [address] [address] Signed during the course of her hospitalization initially with [facility] for this clinical and laboratory finding and will transition to antibiotic as an outpatient for five additional days. DISCHARGE MEDICATIONS: Include: 1. Bactrim DS one tablet p.o. b.i.d. #10. 2. Resumption of Tylenol 325 two tablets p.o. q.6 hours as needed for pain, vitamin C 1000 mg p.o. daily. 3. Vitamin D3 250 mcg 10,000 unit tablet one p.o. daily. 4. Zinc gluconate 30 mg p.o. daily. 5. Evening [place] oil 500 mg capsule daily. 6. Montelukast 10 mg p.o. daily for allergies. DISCHARGE DIAGNOSES: 1. Acute small bowel obstruction with spontaneous resolution. 2. History of laparoscopic band procedure. 3. History of cholecystectomy. 4. Asymptomatic urinary tract infection (now treated). FOLLOWUP PLAN: She will return to the ongoing care of her primary care physician, Michelle Isaac, family nurse practitioner. If there are problems going forward with obstructive symptoms, I am happy to see her again, but will not make formal visit for that purpose at this time. MD RAKESH Veliz/MODL /[id number] Copies: ~ Electronically Signed By: DONNIE ALEXANDRA MD 08/11/21 1252 PATIENT NAME: RICH NATHAN MARIBEL DISCHARGE SUMMARY DATE OF : 61 REPORT #: [id number] PHYSICIAN: DONNIE ALEXANDRA MD PCP: MICHELLE ISAAC [facility] REPORT IS CONFIDENTIAL AND NOT TO BE RELEASED WITHOUT AUTHORIZATION
== END 2021-08-09 11:30 | disposition home or self-care (01) | DRG 389 ==
LOC: ED 23:52 → MS 23:54
PROVIDERS: ADMIT Surgery; ATTEND Surgery
DX: K56.50 Intestinal adhesions [bands], unspecified as to partial versus complete obstruction (principal); N39.0 Urinary tract infection, site not specified; Z20.822 Contact with and (suspected) exposure to COVID-19; K95.09 Other complications of gastric band procedure; Z90.49 Acquired absence of other specified parts of digestive tract; Z87.442 Personal history of urinary calculi; Z98.84 Bariatric surgery status; Z88.5 Allergy status to narcotic agent
CPT/HCPCS: 71045; 74018; 74177; 74250; 80053; 81001; 83690; 84484; 85025; 93005; 93010; 94760; 96375; 96376; 99285-25; G0378; J0690; J0696; J1170; J1644; J1885; J2405; J7121; Q9967; U0003